=== PATIENT | female | born 1975 | race Two or more races ===

== ENCOUNTER → 2016-12-24 | Outpatient (CLI) | payer BC ==
--- NOTE | 2016-12-24 16:48 | RAD ---
EXAM: Pelvic ultrasound HISTORY: Menorrhagia. COMPARISON: None. FINDINGS: Sonographic evaluation of the pelvis was performed transabdominally and transvaginally. The uterus is anteverted and measures 7.3 x 5.5 x 3.4 cm. The endometrial stripe measures 3 mm. A small myometrial fibroid at the fundus measures 1.4 x 1.4 cm. There is no significant free fluid. The right ovary measures 2.9 x 2.3 x 1.9 cm. A dominant follicle on the right measures 1.5 x 1.2 cm. The left ovary measures 2.2 x 2.1 x 1.4 cm. There is normal Doppler flow bilaterally. There are no suspicious lesions. IMPRESSION: 1. 1.4 cm myometrial fibroid at the fundus. Normal endometrial thickness.
== END | disposition home or self-care (01) ==
LOC: US 15:00
PROVIDERS: ATTEND Obstetrics & Gynecology
DX: D25.9 Leiomyoma of uterus, unspecified (principal)
CPT/HCPCS: 76830; 76856